=== PATIENT | male | born 1980 ===

== ENCOUNTER 2018-04-19 23:25 | Emergency (ER) | payer SELFPAY ==
[2018-04-19 23:28] VITALS: RESP 16; O2SAT 97
--- NOTE | 2018-04-19 23:35 | C.PDOC ---
History Of Present Illness 37 year old male presents to the emergency department status-post falling and hitting his head prior to arrival. Patient states that he was drinking tonight, and tripped while walking down the street. He denies LOC, nausea, and vomiting. Time Seen by Provider: 04/19/18 23:34 Chief Complaint (Nursing): Trauma History Per: Patient History/Exam Limitations: no limitations Injury Occurred (Timing): Just Before Arrival Patient States: Fell Striking Head Severity: Mild Pain Scale Rating Of: 4 Loss Of Consciousness: No Past Medical History Reviewed: Historical Data, Nursing Documentation, Vital Signs Vital Signs: Last Vital Signs Temp 98.4 F 04/19/18 23:26 Pulse 108 H 04/19/18 23:26 Resp 16 04/19/18 23:26 BP 164/106 H 04/19/18 23:26 Pulse Ox 97 04/19/18 23:26 - Medical History PMH: No Chronic Diseases Surgical History: No Surg Hx Family History: States: No Known Family Hx - Social History Hx Alcohol Use: Yes Hx Substance Use: No Review Of Systems Constitutional: Negative for: Fever, Chills Gastrointestinal: Negative for: Nausea, Vomiting Neurological: Negative for: Other (loss of consciousness) Physical Exam - Physical Exam Appears: Non-toxic, No Acute Distress Skin: Warm, Dry Head: Normacephalic, Abrasion (to the right side of the forehead) Eye(s): bilateral: Normal Inspection, PERRL, EOMI Nose: Other (abrasion to the bridge of the nose) Oral Mucosa: Moist, Other (alcohol on breath) Chest: Symmetrical, No Tenderness Cardiovascular: Rhythm Regular, No Murmur Respiratory: No Rales, No Rhonchi, No Wheezing Extremity: Normal ROM (all extremities) Pulses: Left Dorsalis Pedis: Normal, Right Dorsalis Pedis: Normal Neurological/Psych: Oriented x3 ED Course And Treatment O2 Sat by Pulse Oximetry: 97 (RA) Pulse Ox Interpretation: Normal Progress Note: Plan: CT Head. CT Orbits/Facials Reevaluation Time: 04:58 Reassessment Condition: Improved Disposition Counseled Patient/Family Regarding: Studies Performed, Diagnosis, Need For Followup - Disposition Referrals: [facility] [Outside] Disposition: HOME/ ROUTINE Disposition Time: 23:35 Condition: FAIR Additional Instructions: Please return if symptoms recur Instructions: Alcohol Abuse and Alcoholism (DC), Skin Abrasions (DC) Forms: [employer] (Serbian) - Clinical Impression Clinical Impression: Alcohol intoxication, Abrasion head - Scribe Statement The provider has reviewed the documentation as recorded by the Scribe (Chuy Trevino) Provider Attestation: All medical record entries made by the Scribe were at my direction and personally dictated by me. I have reviewed the chart and agree that the record accurately reflects my personal performance of the history, physical exam, medical decision making, and the department course for this patient. I have also personally directed, reviewed, and agree with the discharge instructions and disposition.
[2018-04-20 05:37] VITALS: BP 117/77; PULSE 106; TEMP 97.6
--- NOTE | 2018-04-20 07:25 | CT ---
Date of service: 04/20/2018 PROCEDURE: CT HEAD WITHOUT CONTRAST. HISTORY: fall COMPARISON: None available. TECHNIQUE: Axial computed tomography images were obtained through the head/brain without intravenous contrast. Radiation dose: Total exam DLP = 1065.12 mGy-cm. This CT exam was performed using one or more of the following dose reduction techniques: Automated exposure control, adjustment of the mA and/or kV according to patient size, and/or use of iterative reconstruction technique. FINDINGS: HEMORRHAGE: No intracranial hemorrhage. BRAIN: No mass effect or edema. No atrophy or chronic microvascular ischemic changes. VENTRICLES: Unremarkable. No hydrocephalus. CALVARIUM: Unremarkable. PARANASAL SINUSES: Mild chronic mucosal inflammatory changes of the maxillary sinuses and ethmoid air cells. MASTOID AIR CELLS: Unremarkable as visualized. No inflammatory changes. OTHER FINDINGS: Right periorbital soft tissue swelling. IMPRESSION: No acute intracranial abnormality. If symptoms persists, consider correlation with MRI. These findings were preliminarily reported at 1:27 a.m. on 04/20/[address] Queta Bradshaw from [id number].
--- NOTE | 2018-04-20 08:03 | CT ---
CT maxillofacial HISTORY: Injury. COMPARISON: None available. TECHNIQUE: Multiple contiguous axial images were performed through the maxillofacial region without the use of intravenous contrast. Subsequently, sagittal and coronal reformatted images were obtained. This CT exam was performed using one or more of the following dose reduction techniques: Automated exposure control, adjustment of the mA and/or kV according to patient size, and/or use of iterative reconstruction technique. Findings: Mild mucosal thickening of the bilateral maxillary sinuses. Hypoplastic sphenoid sinus. Mild mucosal thickening of the ethmoid air cells. Frontal sinus is preserved. Mastoid air cells are preserved. Right periorbital soft tissue contusion. Impression: Right periorbital soft tissue contusion. Otherwise negative acute. Sinus mucosal disease as above. A preliminary report was generated at 1:31 a.m. on 04/20/[address] Queta Bradshaw from [id number].
== END 2018-04-20 05:37 | disposition home or self-care (01) ==
LOC: EDBD 23:25 → C.ER 23:25
DX: S00.81XA Abrasion of other part of head, initial encounter (principal); W01.0XXA Fall on same level from slipping, tripping and stumbling without subsequent striking against object, initial encounter; Y92.410 Unspecified street and highway as the place of occurrence of the external cause; F10.129 Alcohol abuse with intoxication, unspecified; Y90.9 Presence of alcohol in blood, level not specified